=== PATIENT | male | born 1975 | race Caucasian/White ===

== ENCOUNTER 2023-10-12 14:38 | Emergency (ER) | payer SELFPAY ==
[~2023-10-12] VITALS: Ht 175.3 cm; Wt 192.2 kg
[2023-10-12 14:41] VITALS: BP 143/58; PULSE 86; RESP 16; TEMP 98.4; O2SAT 98
[2023-10-12 15:56] LABS: BASOPHILS % 0.7 % (0.0-2.0); EOSINOPHILS % 2.8 % (0.0-5.0); HEMATOCRIT. 36.8 % (42.0-52.0); HEMOGLOBIN. 12.3 g/dL (14.0-18.0); LYMPHOCYTES % 28.8 % (20.0-50.0); MEAN CORPUSCULAR HEMOGLOBIN 29.6 pg (28.0-32.0); MEAN CORPUSCULAR HGB CONC 33.5 g/dL (31.0-37.0); MEAN CORPUSCULAR VOLUME 88.5 fL (80.0-94.0); MEAN PLATELET VOLUME 8.8 fl (7.4-10.4); MONOCYTES % 7.3 % (2.0-8.0); NEUTROPHILS % 60.4 % (40.0-76.0); PLATELET 260 x1000/uL (130-400); RED BLOOD CELL COUNT 4.16 mill/uL (4.7-6.1)
[2023-10-12 16:13] LABS: ALANINE AMINOTRANSFERASE 39 IU/L (10-49); ALBUMIN 4.1 g/dL (3.2-4.8); ASPARTATE AMINOTRANSFERASE 31 IU/L (<34); BILIRUBIN TOTAL 0.4 mg/dL (0.1-1.0); CALCIUM 9.1 mg/dL (8.7-10.4); CARBON DIOXIDE 30 mEq/L (21-32); CHLORIDE 105 mEq/L (98-107); CREATININE 0.8 mg/dL (0.6-1.3); GLUCOSE 174 mg/dL (70-105); POTASSIUM 4.4 mEq/L (3.5-5.1); PROTEIN TOTAL 7.3 g/dL (6.0-8.3); SODIUM 140 mEq/L (136-145); TROPONIN I HIGH SENSITIVITY 4 ng/L (3.0-53); UREA NITROGEN BLOOD 12 mg/dL (9-23)
== END 2023-10-12 18:42 | disposition home or self-care (01) ==
LOC: ER 18:33
DX: R07.9 Chest pain, unspecified (principal); E11.9 Type 2 diabetes mellitus without complications; I10 Essential (primary) hypertension; Z90.49 Acquired absence of other specified parts of digestive tract
CPT/HCPCS: 36415; 71045; 80053; 83880; 84484; 85025; 93005; 99285

== ENCOUNTER 2024-07-31 11:08 | Emergency (ER) | payer SELFPAY ==
[~2024-07-31] VITALS: Ht 175.3 cm; Wt 136.0 kg
[2024-07-31 11:15] VITALS: O2SAT 97
[2024-07-31 13:03] LABS: BASOPHILS % 0.6 % (0.0-2.0); EOSINOPHILS % 1.5 % (0.0-5.0); HEMATOCRIT. 40.3 % (42.0-52.0); HEMOGLOBIN. 13.3 g/dL (14.0-18.0); LYMPHOCYTES % 26.4 % (20.0-50.0); MEAN CORPUSCULAR VOLUME 93.9 fL (80.0-94.0); MEAN PLATELET VOLUME 8.4 fl (7.4-10.4); MONOCYTES % 6.5 % (2.0-8.0); PLATELET 243 x1000/uL (130-400); RED BLOOD CELL COUNT 4.29 mill/uL (4.7-6.1); WHITE BLOOD COUNT 9.1 x1000/uL (4.5-11.0)
[2024-07-31 13:08] LABS: CHLORIDE 107 mEq/L (98-107); POTASSIUM 3.9 mEq/L (3.5-5.1); SODIUM 141 mEq/L (136-145)
[2024-07-31 13:10] LABS: CARBON DIOXIDE 28 mEq/L (21-32)
[2024-07-31 13:11] LABS: CALCIUM 9.3 mg/dL (8.7-10.4)
[2024-07-31 13:15] LABS: CREATININE 0.8 mg/dL (0.6-1.3); GLUCOSE 92 mg/dL (70-105)
[2024-07-31 13:16] LABS: UREA NITROGEN BLOOD 13 mg/dL (9-23)
[2024-07-31 13:17] LABS: ALANINE AMINOTRANSFERASE 31 IU/L (10-49); ALBUMIN 3.8 g/dL (3.2-4.8); ASPARTATE AMINOTRANSFERASE 33 IU/L (<34)
[2024-07-31 13:18] LABS: BILIRUBIN DIRECT 0.2 mg/dL (<=3.0); BILIRUBIN TOTAL 0.5 mg/dL (0.1-1.0)
[2024-07-31 13:19] LABS: TROPONIN I HIGH SENSITIVITY < 4 ng/L (3.0-53)
[2024-07-31] MEDS: ACETAMINOPHEN 325MG TABLET PO NR (13:24)
[2024-07-31 14:41] VITALS: BP 125/88; PULSE 75; RESP 18; TEMP 36.61404; O2SAT 98
== END 2024-07-31 14:45 | disposition home or self-care (01) ==
LOC: ER 11:57
DX: R07.9 Chest pain, unspecified (principal); I10 Essential (primary) hypertension; E11.9 Type 2 diabetes mellitus without complications; Z90.49 Acquired absence of other specified parts of digestive tract
CPT/HCPCS: 36415; 71045; 73110; 73560; 80048; 80076; 84484; 85025; 93005; 99285

== ENCOUNTER 2025-07-30 10:52 | Emergency (ER) | payer MEDICAID, OTHER ==
[~2025-07-30] VITALS: Ht 175.3 cm; Wt 181.0 kg
[2025-07-30 10:55] VITALS: O2SAT 96
[2025-07-30 12:02] LABS: BASOPHILS % 0.6 % (0.0-2.0); EOSINOPHILS % 3.8 % (0.0-5.0); HEMATOCRIT. 37.3 % (42.0-52.0); HEMOGLOBIN. 12.3 g/dL (14.0-18.0); LYMPHOCYTES % 24.0 % (20.0-50.0); MEAN PLATELET VOLUME 8.5 fl (7.4-10.4); MONOCYTES % 5.6 % (2.0-8.0); NEUTROPHILS % 66.0 % (40.0-76.0); PLATELET 267 x1000/uL (130-400); RED BLOOD CELL COUNT 4.19 mill/uL (4.7-6.1); RED CELL DISTRIBUTION WIDTH 13.3 % (11.6-14.6)
[2025-07-30 12:19] LABS: CREATININE 0.8 mg/dL (0.6-1.3); UREA NITROGEN BLOOD 12 mg/dL (9-23)
[2025-07-30 12:20] LABS: TROPONIN I HIGH SENSITIVITY < 4 ng/L (3.0-53)
[2025-07-30 12:57] LABS: INR 1.0
[2025-07-30] MEDS: MAGNESIUM/ALUMINUM HYDROXIDE/SIMETHICONE 30ML UDC PO ONE ×2 (14:45)
[2025-07-30] MEDS: PANTOPRAZOLE 40MG DR TABLET PO ONE (14:45)
[2025-07-30] MEDS: ACETAMINOPHEN 325MG TABLET PO ONE (14:46)
[2025-07-30] MEDS ORDERED: PANT40SU MT (17:46)
[2025-07-30] MEDS ORDERED: MAG-55 MT (17:46)
[2025-07-30] MEDS ORDERED: TOPUD MT (17:46)
[2025-07-30 18:07] VITALS: BP 135/80; PULSE 77; RESP 14; TEMP 36.6; O2SAT 95
== END 2025-07-30 18:14 | disposition home or self-care (01) ==
LOC: ER 10:52
DX: R07.89 Other chest pain (principal); E11.9 Type 2 diabetes mellitus without complications; E78.00 Pure hypercholesterolemia, unspecified; I10 Essential (primary) hypertension; Z90.49 Acquired absence of other specified parts of digestive tract
CPT/HCPCS: 36415; 71045; 80048; 84484; 85025; 85379; 93005; 99285